=== PATIENT | male | born 1995 | race Caucasian/White ===

== ENCOUNTER 2017-11-25 19:38 | Emergency (ER) | payer SELFPAY ==
--- NOTE | 2017-11-25 20:05 | EDPHY ---
Addendum entered and electronically signed by Felipe Barton MD 11/26/17 06: 56: 0700 patient signed out to Dr. Brooke pending placement. There been no issues during my care this patient overnight. Addendum entered and electronically signed by Felipe Barton MD 11/25/17 23: 32: 2300 patient signed out to me by Dr. Villasenor pending mental health evaluation. Original Note: H & P Smoking Status: Heavy smoker Time Seen by Provider: 11/25/17 19:57 HPI/ROS: CHIEF COMPLAINT: M1 hold HISTORY OF PRESENT ILLNESS: The patient is a 22-year-old male who is brought in from long term on an M1 hold. Per report patient's family had taken a gun away from his house. The patient reported that he had tried used a gun to kill himself. It was also reported that the patient's girlfriend took the knife away from the patient. He tried to hurt himself tonight. On my interaction with the patient he denies suicidal ideation. He states that he does not have a history of psychiatric disease or depression. He denies ingestion of drugs or alcohol. No complaints at this time. REVIEW OF SYSTEMS: My complete review of systems is negative except as mentioned in the HPI. ( Nia Villasenor) Past Medical/Surgical History: Denies Past surgical history: Denies Social history: Denies (Nia Villasenor) Physical Exam: 36.8, 133/70, 85, 16, 95% on room air GENERAL: Well-appearing, in no acute distress, alert. HEENT: Eyes normal to inspection, normal pharynx, no signs of dehydration. NECK: [No thyromegaly, no lymphadenopathy, supple. RESPIRATORY: Clear to auscultation bilaterally, no rales, rhonchi or wheezing. CVS: Regular rate and rhythm, no rubs, murmurs, or gallops. ABDOMEN: Soft, nontender, nondistended, no organomegaly. BACK: Normal to inspection, no CVA tenderness. SKIN: Normal color, no rash, warm, dry. No pallor. EXTREMITIES: No pedal edema, no calf tenderness, no Homans sign or cords, no joint swelling. Patient's left forearm has multiple superficial linear abrasions. (patient states these are from a cat) NEURO/PSYCH: Alert and oriented x3, normal mood and affect, normal motor sensory exam. No obvious cranial nerve deficit. (Nia Villasenor) Constitutional: Initial Vital Signs Temperature (C) 36.8 C 11/25/17 19:47 Heart Rate 85 11/25/17 19:47 Respiratory Rate 16 11/25/17 19:47 Blood Pressure 133/70 H 11/25/17 19:47 O2 Sat (%) 95 11/25/17 19:47 O2 Delivery Mode Room Air Allergies/Adverse Reactions: No Known Allergies Allergy (Unverified 11/25/17 19:47) Home Medications: Medication Instructions Recorded NK [No Known Home Meds] 11/25/17 Medical Decision Making ED Course/Re-evaluation: In the emergency department I discussed possible etiologies with the patient. I answered all his questions. I informed the patient he was on a mental health hold. 2300: The patient is signed out to Dr. Barton at change of shift. (Nia Villasenor) Differential Diagnosis: My differential includes but is not limited to suicidal ideation, self-harm, depression, psychiatric disease (Nia Villasenor) Other Provider: The patient has been accepted for inpatient psychiatric hospitalization for suicidal ideation by Dr. Abbasi at [facility]. I have filled out the EMTALA transfer form. (Bob Brooke) - Data Points Laboratory Results: Laboratory Results 11/25/17 20:00 11/25/17 20:00 Departure - Departure Disposition: Other Psych, Not [place] Clinical Impression: Suicidal ideation Condition: Good Referrals: APRIL ALEJANDRO [Other] - As per Instructions
[2017-11-25 20:11] LABS: PLATELET COUNT 287 10^3/uL (150-400)
[2017-11-26 08:09] VITALS: BP 113/60; PULSE 55; RESP 18; TEMP 98.1; O2SAT 96
[2017-11-26] MEDS ORDERED: NICOTINE 21 MG/24 HR PATCH TD SCH (13:00)
== END 2017-11-26 13:09 ==
LOC: EEVIPCON 19:38
DX: R45.851 Suicidal ideations (principal); F17.200 Nicotine dependence, unspecified, uncomplicated
CPT/HCPCS: 80305; G0480